=== PATIENT | male | born 1935 | race Caucasian/White ===

== ENCOUNTER 2019-05-25 10:53 | Outpatient (RCR) | payer MEDICARE, OTHER ==
[2019-05-25] MEDS ORDERED: MINERAL OIL/PETROLAT/GLYCERI 2OZ CRM ONE (15:37)
== END 2019-06-02 ==
LOC: WCC 10:53
PROVIDERS: ATTEND Family Medicine Adult Medicine
DX: R60.0 Localized edema (principal); I87.2 Venous insufficiency (chronic) (peripheral); I89.0 Lymphedema, not elsewhere classified; M10.9 Gout, unspecified; N18.3 Chronic kidney disease, stage 3 (moderate); E66.3 Overweight; E78.5 Hyperlipidemia, unspecified; F03.90 Unspecified dementia, unspecified severity, without behavioral disturbance, psychotic disturbance, mood disturbance, and anxiety; I25.84 Coronary atherosclerosis due to calcified coronary lesion; I48.91 Unspecified atrial fibrillation; I50.22 Chronic systolic (congestive) heart failure; K21.9 Gastro-esophageal reflux disease without esophagitis

== ENCOUNTER 2019-06-22 13:54 | Outpatient (RCR) | payer MEDICARE, OTHER ==
[~2019-06-22 13:54] MED LIST: MINERAL OIL/PETROLAT/GLYCERI 6OZ BTL ONE
[2019-06-22] MEDS ORDERED: MINERAL OIL/PETROLAT/GLYCERI 2OZ CRM ONE (16:59)
[2019-06-22] MEDS ORDERED: NYSTATIN 15 GM POWDER UD BTL ONE (16:59)
== END 2019-07-03 ==
LOC: WCC 13:54
PROVIDERS: ATTEND Family Medicine Adult Medicine
DX: N18.3 Chronic kidney disease, stage 3 (moderate) (principal); R60.0 Localized edema; I87.2 Venous insufficiency (chronic) (peripheral); I89.0 Lymphedema, not elsewhere classified; M10.9 Gout, unspecified; F03.90 Unspecified dementia, unspecified severity, without behavioral disturbance, psychotic disturbance, mood disturbance, and anxiety; I50.22 Chronic systolic (congestive) heart failure; E78.5 Hyperlipidemia, unspecified; I48.91 Unspecified atrial fibrillation; K21.9 Gastro-esophageal reflux disease without esophagitis; I25.84 Coronary atherosclerosis due to calcified coronary lesion; E66.3 Overweight

== ENCOUNTER 2019-08-05 13:12 | Outpatient (RCR) | payer MEDICARE, OTHER | END 2019-09-02 | LOC: WCC 13:12 | PROVIDERS: ATTEND Family Medicine Adult Medicine | DX: I87.2 Venous insufficiency (chronic) (peripheral) (principal); I89.0 Lymphedema, not elsewhere classified; R60.0 Localized edema; M10.9 Gout, unspecified; R23.8 Other skin changes; N18.3 Chronic kidney disease, stage 3 (moderate); F03.90 Unspecified dementia, unspecified severity, without behavioral disturbance, psychotic disturbance, mood disturbance, and anxiety; I25.84 Coronary atherosclerosis due to calcified coronary lesion; I48.91 Unspecified atrial fibrillation; I50.22 Chronic systolic (congestive) heart failure; K21.9 Gastro-esophageal reflux disease without esophagitis; E78.5 Hyperlipidemia, unspecified; E66.3 Overweight; X58.XXXA Exposure to other specified factors, initial encounter ==